=== PATIENT | male | born 1945 | race Caucasian/White ===

== ENCOUNTER 2018-03-28 15:28 | Inpatient (IN) | payer OTHER, MEDICARE ==
--- NOTE | 2018-03-28 16:01 | EDPHY ---
H & P Time Seen by Provider: 03/28/18 16:01 HPI/ROS: HPI CHIEF COMPLAINT: Cough, shortness of breath HISTORY OF PRESENT ILLNESS: This is a 72-year-old male presents emergency room by EMS for cough, shortness of breath. The patient just flew from [place] to [facility] for the holiday. He arrives to the emergency room after he had a near syncopal episode with vomiting generalized weakness and shortness of breath. and daughter at bedside report that he has a hard time with high altitude. The patient presents emergency room by EMS after he got up out of a chair felt lightheaded, and then had a presyncopal episode he did not have full syncope. Denies chest pain. Main complaint lightheadedness, nausea and shortness of breath. Past Medical History: COPD. Past Surgical History: Denies significant surgical history Social History: Lives in [place]. Denies drugs alcohol tobacco. Family History: Noncontributory. ROS REVIEW OF SYSTEMS: 10 Systems were reviewed and negative with the exception of the elements mentioned in the history of present illness. Exam Constitutional elderly, nontoxic triage nursing summary reviewed, vital signs reviewed, awake/alert. Hypoxic 78% on room air. Eyes normal conjunctivae and sclera, EOMI, PERRLA. HENT normal inspection, atraumatic, moist mucus membranes, no epistaxis, neck supple/ no meningismus, no raccoon eyes. Respiratory crackles right lung base. Cardiovascular rate normal, regular rhythm, no murmur, no edema, distal pulses normal. Gastrointestinal soft, non-tender, no rebound, no guarding, normal bowel sounds, no distension, no pulsatile mass. Genitourinary no CVA tenderness. Musculoskeletal no midline vertebral tenderness, full range of motion, no calf swelling, no tenderness of extremities, no meningismus, good pulses, neurovascularly intact. Skin pink, warm, & dry, no rash, skin atraumatic. Neurologic awake, alert and oriented x 3, AAOx3, moves all 4 extremities equally, motor intact, sensory intact, CN II-XII intact, normal cerebellar, normal vision, normal speech. Psychiatric normal mood/affect. Heme/Lymph/Immune no lymphadenopathy. Differential Diagnosis: Includes but is not limited to in a particular order dehydration, infection, pneumonia, altitude illness, PE, ACS Medical Decision Making: Plan for this patient IV establishment IV fluid bolus , supplemental oxygen, x-ray, blood cultures, lactic acid, EKG, troponin, rule out pneumonia rule out altitude illness Re-evaluation: Patient's room air saturation 78% on room air. No distress. Requiring 10 L. Chest x-ray reviewed. EKG interpretation by me on record in [employer] system. Impression time of EKG 1631, sinus rhythm rate of 71, right bundle-branch block present. No signs of acute ischemia no ST elevation. Troponin 0.48. IV fluids held due to elevated BNP. Chest x-ray is concerning for pneumonia Patient has a white white blood cell count [id number]. No baseline WBC. Plan for hospital admission for hypoxia, shortness of breath, possible altitude illness, elevated white blood cell count possible pneumonia. Plan for hospital admission due to hypoxia, elevated troponin, elevated BNP, elevated white blood cell count. Patient pending CT angiogram of the chest rule out PE, pneumonia I spoke with the hospitalist service Dr. Acevedo who agrees to admit. IV Levaquin has been ordered. Blood culture sent. Lactic acid pending. Updated family at bedside they agree with this plan. Admit to step-down unit for close monitoring. CT angiogram of the chest reviewed shows no evidence of PE. Tree-in-bud pathology visualized. Pneumonia. IV Levaquin ordered. Respiratory panel ordered. Source: Patient, EMS Constitutional: Initial Vital Signs Temperature (C) 36.3 C 03/28/18 16:07 Heart Rate 72 03/28/18 16:07 Respiratory Rate 18 03/28/18 16:07 Blood Pressure 104/77 03/28/18 16:07 O2 Sat (%) 93 03/28/18 16:07 O2 Delivery Mode Oxymask O2 (L/minute) 10 Allergies/Adverse Reactions: naproxen [From Aleve] Allergy (Verified 03/29/18 11:08) zolpidem [From Ambien] Allergy (Verified 03/29/18 11:08) Home Medications: Medication Instructions Recorded Levothyroxine [Synthroid 50 mcg 50 mcg PO DAILY06 03/28/18 (*)] Mirtazapine [Mirtazapine] 15 mg PO DAILY 03/28/18 Multivitamins [Multivitamin (*)] 1 tab PO DAILY 03/28/18 Tiotropium Br/Olodaterol HCl 2 puffs IH DAILY 03/28/18 [Stiolto Respimat Inhal [place]] acetaZOLAMIDE [Diamox 250 mg (RX)] 250 mg PO QAM 03/28/18 Medical Decision Making - Data Points Laboratory Results: Laboratory Results 03/28/18 16:25 03/28/18 16:15 Medications Given: Albuterol/Ipratropium (Duoneb) 3 ml IH QID KIARRA Stop: 09/24/18 20:59 Last Admin: 03/29/18 11:54 Dose: 3 ml Doxycycline Hyclate (Doxycycline Hyclate) 100 mg PO BID KIARRA PRN Reason: Protocol Stop: 04/28/18 08:59 Last Admin: 03/29/18 10:20 Dose: 100 mg Heparin Sodium (Porcine) (Heparin Sc Injection) 5,000 unit SC Q8 KIARRA Stop: 09/24/18 21:59 Last Admin: 03/29/18 14:57 Dose: 5,000 unit Levothyroxine Sodium (Synthroid) 50 mcg PO DAILY06 KIARRA Stop: 09/25/18 05:59 Last Admin: 03/29/18 05:49 Dose: 50 mcg Mirtazapine (Remeron) 15 mg PO DAILY KIARRA Stop: 09/25/18 08:59 Last Admin: 03/29/18 10:20 Dose: 15 mg Prednisone (Prednisone) 40 mg PO DAILY KIARRA Stop: 09/25/18 10:59 Last Admin: 03/29/18 11:38 Dose: 40 mg Discontinued Medications Levofloxacin/Dextrose (Levaquin 750 Mg (Premix)) 150 mls @ 100 mls/hr IV EDNOW ONE PRN Reason: Protocol Stop: 03/28/18 18:08 Last Admin: 03/28/18 17:06 Dose: 150 mls Sodium Chloride (Ns) 1,000 mls @ 150 mls/hr IV CONT KIARRA Stop: 09/24/18 18:14 Last Admin: 03/29/18 10:19 Dose: 1,000 mls Sodium Chloride (Ns) 1,000 mls @ 6,000 mls/hr IV ONCE ONE Stop: 03/28/18 18:14 Last Admin: 03/28/18 18:38 Dose: 1,000 mls Piperacillin/Tazobactam/Dextrose (Zosyn 3.375 Gm (Premix)) 50 mls @ 100 mls/hr IV Q6HRS KIARRA PRN Reason: Protocol Stop: 04/28/18 00:00 Last Admin: 03/29/18 05:48 Dose: 50 mls Point of Care Test Results: Chemistry 03/28/18 16:37 POC Troponin I 0.48 ng/mL H ng/mL (0.00-0.08) Departure - Departure Disposition: [facility] Inpatient Acute Clinical Impression: Hypoxia, Dehydration, JOSE (acute kidney injury) Pneumonia Qualifiers: Pneumonia type: due to unspecified organism Laterality: bilateral Lung location : unspecified part of lung Qualified Code(s): J18.9 - Pneumonia, unspecified organism Condition: Fair
[2018-03-28 16:27] LABS: PLATELET COUNT 425 10^3/uL (150-400)
[2018-03-28 16:38] LABS: INR 1.06 (0.83-1.16)
[2018-03-28] MEDS ORDERED: IOPAMIDOL (ISOVUE 370) 100 ML BTL IV ONE (17:08)
[2018-03-28] MEDS ORDERED: NS 1,000 ML IV ONE (18:05)
[2018-03-28] MEDS ORDERED: ACETAMINOPHEN 325 MG TAB PO PRN (18:05)
[2018-03-28] MEDS ORDERED: HYDROCODONE/APAP 5/325 TAB PO PRN (18:05)
[2018-03-28] MEDS: NS 1,000 ML IV SCH (19:41)
[2018-03-28] MEDS: IPRATROPIUM/ALBUTEROL 3 ML DEYVIAL IH SCH (20:21)
--- NOTE | 2018-03-28 22:47 | GHP ---
DATE OF ADMISSION: 03/28/2018 CHIEF COMPLAINT: Hypoxia, cough, and syncopal episode. HISTORY OF PRESENT ILLNESS: Mr. Knapp is a 72-year-old gentleman with a past medical history of [employer]IL[employer]EM[employer] D and tonsillar cancer, status post surgery and radiation treatment approximately 10 years ago, who i s visiting from [place], who presented with shortness of breath and cough. [facility], his blood work was notable for leukocytosis of 27,000. He also had a mildly elevated cr eatinine at 1.5. He needed to be placed on oxygen as he was 72% on room air when he first presented. He was placed on 10 L on Ventimask and saturating into the 90s. CT scan of the chest showed diffus e [id number] opacities suggestive of atypical pneumonia such as viral mycobacterial or fungal. Med iastinal and hilar adenopathy was also noted and felt to be reactive in nature. Due to the significa nt hypoxia, he is being admitted for further monitoring and treatment. PAST MEDICAL HISTORY: COPD, hypothyroidism, tonsillar cancer, status post surgery and radiation roc tment. PAST SURGICAL HISTORY: Tonsillectomy for cancer. MEDICATIONS: Levothyroxine and inhalers which he uses daily but is uncertain as to their name. ALLERGIES: No known drug allergies. FAMILY HISTORY: Mom and dad both . They had dementia and diabetes mellitus, type 2. SOCIAL HISTORY: Patient is currently . He was a tobacco smoker for about 10 years in his 20s , but no smoking since that time. He has a daughter here in [place] that he is visiting currently. Full code status. REVIEW OF SYSTEMS: CONSTITUTIONAL: No complaints of any subjective fevers or chills. ENT: No nasa l congestion noted or sinus pain. CARDIOVASCULAR: No complaints of any chest pains or palpitations. RESPIRATORY: Positive for cough. No hemoptysis. GI: No nausea, vomiting, diarrhea, constipation . : No reports of any difficulty with urination. NEUROLOGIC: No complaints of headaches or foca l weakness. HEMATOLOGIC: No history of any deep vein thrombosis or pulmonary embolism. PSYCHIATRIC : No history of anxiety or depression. ENDOCRINE: No polyuria or heat intolerance. SKIN: No new skin rashes. MUSCULOSKELETAL: No focal joint pains. PHYSICAL EXAM: VITAL SIGNS: Temperature 36.3, blood pressure 104/77, heart rate 72, respirations 18 , saturating 93% on 10 L Ventimask. GENERAL: Patient appears comfortable. He is awake, alert, conv ersant, no acute distress. Nontoxic appearing. HEENT: Extraocular movements are intact. No sclera l icterus noted. NECK: Supple. No thyroid enlargement. CHEST: Notable crackles at the bases bila terally. No significant associated wheezing. Respiratory effort was normal. HEART: Regular. No m urmurs noted. ABDOMEN: Soft, nontender, nondistended. : No Yu catheter in place. EXTREMITIE S: No significant pitting edema. NEUROLOGIC: Cranial nerves 2-12 appear grossly intact 5/5 strengt h in extremities. LABS: White blood cell count 27, hemoglobin 13, platelets 425. Sodium 138, potassium 4.3, chloride 103, bicarb 24, BUN 26, creatinine 1.5, glucose 150. INR 1.0. Troponin 0.48. BNP 4890. Liver func tion tests within normal limits. Lipase 65. Lactic acid within normal limits at 1.3. IMAGING: As detailed above. ASSESSMENT/PLAN: 1. Sepsis: Patient does meet criteria for systemic inflammatory response syndrome based upon leukoc ytosis and hypoxia; source could be secondary to pneumonia. 2. Acute hypoxic respiratory failure: Suspect secondary to underlying pneumonia. Scheduled nebuliz ers and wean oxygen as able. 3. Pneumonia: Patient does report having difficulty with swallowing, and this has been going on for some time. It sounds like he has been working with Speech Therapy in [place]. Considering this, I would not rule out aspiration pneumonia as a potential contributor to his presentation. However, by CT imaging, it could be viral or atypical. I recommend respiratory pathogen panel to evaluate for po tential viral etiologies. Otherwise, cover empirically with Zosyn for now. 4. Acute kidney injury: IV fluids overnight and recheck. No known chronic kidney disease. 5. Elevated troponin: May be secondary to underlying sepsis. Trend overnight. Patient is not expe riencing any chest pain or pressure. 6. Chronic obstructive pulmonary disease: Patient does use inhalers, but is uncertain as to which o tito he uses. We will schedule DuoNebs overnight. 7. Deep vein thrombosis prophylaxis: Heparin. 8. Disposition: I will admit under inpatient status. /[id number]/MODL
[2018-03-28] MEDS: HEPARIN 5,000 UNIT/0.5 ML INJ SC SCH (23:22)
[2018-03-28] MEDS: PIPERACILLIN/TAZO 3.375 GM/DEX 50 ML IV SCH (23:22)
[2018-03-29] MEDS: NS 1,000 ML IV SCH ×2 (02:46→10:19)
[2018-03-29] MEDS: IPRATROPIUM/ALBUTEROL 3 ML DEYVIAL IH SCH ×4 (05:10→19:47)
[2018-03-29] MEDS: PIPERACILLIN/TAZO 3.375 GM/DEX 50 ML IV SCH (05:48)
[2018-03-29] MEDS: LEVOTHYROXINE 50 MCG TAB PO SCH (05:49)
[2018-03-29] MEDS: HEPARIN 5,000 UNIT/0.5 ML INJ SC SCH ×3 (05:49→20:37)
--- NOTE | 2018-03-29 06:37 | PDMN ---
Medical Necessity Medical necessity: Pt meets INPT criteria per MD as of 03/28/18 and [facility] Pneumonia (est. LOS >2 MN for eval/tx of pnemonia with RA sat 72%, sepsis, acute hypoxic respiratory failure, acute kidney injury, elevated troponin, COPD) .
[2018-03-29 06:41] LABS: PLATELET COUNT 276 10^3/uL (150-400)
[2018-03-29] MEDS: DOXYCYCLINE HYCLATE 100 MG CAP/TAB PO SCH ×2 (10:20→20:37)
[2018-03-29] MEDS: MIRTAZAPINE 15 MG TAB PO SCH (10:20)
--- NOTE | 2018-03-29 11:31 | GCON ---
CARPET LAYER HELPER CONSULTATION REASON FOR ADMISSION: Diffuse pneumonia, acute exacerbation of COPD. HISTORY: The patient is an extremely pleasant 72-year-old white male with a past medical history of lung cancer, for which he has undergone radiation chemo, hypothyroidism, chronic obstructive pulmonar y disease, and tonsillar cancer. He is visiting [place] from [place]. Upon arriving, he began havi ng increasing breathlessness. It was associated with a cough that was distinctly nonproductive. He was seen in the emergency room and subsequently admitted with an exacerbation of COPD and a diffuse p neumonia. In discussion with the patient, he states overall he feels somewhat better. He denies any chest pain, pleuritic-type chest pain or angina equivalent. There is no fever or night sweats. Whi le he has no resting shortness of breath, he does admit to significant dyspnea upon exertion. He fee ls somewhat better since admission. REVIEW OF SYSTEMS: Ten-point review of systems is performed and is negative, except for what is list ed in the HPI. PAST MEDICAL HISTORY: Again significant for lung cancer, for which he underwent radiation treatment, tonsillar cancer, hypothyroidism, chronic obstructive pulmonary disease. ALLERGIES: None known to medication. SOCIAL HISTORY: Previous heavy smoker, none for over 40 years. No significant alcohol use. 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 He is , has children living in [place]. He has excellent [employer] support. FAMILY HISTORY: Noncontributory. PHYSICAL EXAM: VITAL SIGNS: Blood pressure is 115/66, pulse 66, respirations 20. Temperature is 36 .4, oxygen saturation 99% on 10 L OxyMask. GENERAL: He is a well-developed, well-nourished elderly white male who is resting comfortably, in no acute distress. HEENT: Eyes are PERRL, EOMI. Throat s hows no erythema or tonsillar hypertrophy. NECK: Supple. There is no cervical adenopathy. HEART: Regular rate and rhythm, without murmurs, rubs, or gallops. LUNGS: Diminished breath sounds, but n o wheeze. ABDOMEN: Soft, nontender. Bowel sounds present in all 4 quadrants. EXTREMITIES: No clu bbing, cyanosis, or edema. LABORATORIES: White count 19, hemoglobin 12, hematocrit 39, platelet count 276. Sodium 140, potassi um 4.1, chloride 115. CO2 is 20, BUN 21, creatinine 0.9. Glucose is 100. CT angiogram of the chest shows diffuse tree-in-bud suggestive of an atypical pneumonia, likely viral. IMPRESSION: 1. Diffuse pneumonia, likely viral etiology. 2. Acute exacerbation of chronic obstructive pulmonary disease. 3. History of dysphagia, currently on honey-thick liquids. 4. History of lung cancer. 5. History of tonsillar cancer. 6. Acute respiratory failure secondary to above. RECOMMENDATIONS: 1. Agree with admission to the hospital. 2. Supplemental oxygen, wean as tolerated. 3. Agree with oral antibiotics consisting of doxycycline. 4. Would discontinue Zosyn. 5. Oral steroids consisting of prednisone with taper over 2 weeks' time. 6. Would discharge the patient home soon on supplemental oxygen. He will likely need supplemental o xygen on his plane ride back to [place]. 7. 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 8. PT and OT. 9. Speech to see. 10. Ambulation. /[id number]/MODL
[2018-03-29] MEDS: predniSONE 20 MG TAB PO SCH (11:38)
--- NOTE | 2018-03-29 15:20 | HOSPPROG ---
Hospitalist Progress Note Assessment/Plan: * Acute respiratory failure -72% RA on admission requiring up to 15L O2 overnight -improving - wean O2 * Non STEMI -troponin peaked - no chest pain -may have been due to stress of hypoxia -check ECHO -consult cardiology - d/w Dr. Ferrera * Atypical Pneumonia with sepsis -PO doxycycline * Acute renal failure -resolved * COPD -continue nebs * Tonsillar cancer s/p surgery/XRT * Dysphagia -swallow eval pending Subjective: Feeling much better Objective: Vital Signs Temp Pulse Resp BP Pulse Ox 36.7 C 77 21 H 129/66 H 94 03/29/18 12:15 03/29/18 12:15 03/29/18 12:15 03/29/18 12:15 03/29/18 12:15 Microbiology 03/28/18 18:23 Respiratory Panel (PCR) - Final Nasal, Sinus - Swab No Organism Detected By Pcr Laboratory Results 03/29/18 05:56 03/29/18 05:56 03/28/18 03/29/18 03/30/18 05:59 05:59 05:59 Intake Total 1514 Output Total 400 Balance 1114 PT 14.0 SEC (12.0-15.0) 03/28/18 15:45 INR 1.06 (0.83-1.16) 03/28/18 15:45 CXR viewed, my personal interpretation is - diffuse bilateral infiltrates case d/w Dr. Javier - CT chest c/w atypical PNA - Physical Exam Constitutional: no apparent distress, appears nourished, not in pain Cardiovascular: regular rate and rhythym, no murmur, rub, or gallop Respiratory: no respiratory distress, no rales or rhonchi, clear to auscultation Gastrointestinal: normoactive bowel sounds, soft, non-tender abdomen, no palpable masses Skin: no rashes or abrasions, no fluctuance, no induration Neurologic: AAOx3, sensation intact bilaterally Psychiatric: interacting appropriately, not anxious, not encephalopathic, thought process linear ICD10 Worksheet Patient Problems: Problems Problem Status Onset Hypoxia Acute Dehydration Acute JOSE (acute kidney injury) Acute Pneumonia Acute
--- NOTE | 2018-03-29 16:03 | ASMTCAGE ---
CAGE Do you feel you ought to Answers: No cut down on your drinking or drug use? Do people annoy you by Answers: No criticizing your drinking or drug use? Do you feel guilty about Answers: No your drinking or drug use? Do you drink or use drugs Answers: No first thing in the morning ([employer])? Additional Comments 2 fingers of scotch per day. Declined resources. Date Signed: 03/29/2018 04:02 PM Electronically Signed By:Denice Ace RN
--- NOTE | 2018-03-29 16:05 | ECHO ---
[email or web address] [address] [address] Main: [phone] Fax: Transthoracic Echocardiogram Name: ALLEN LUCAS MR#: [id number] Study Date: 03/29/2018 Study Time: 12:27 PM Date of : 1945 Age: 72 year(s) Height: 185.4 cm (73 in.) Weight: 80.74 kg (178 lb.) BSA: 2.05 m2 Gender: Male Examination: Echo Indication: positive troponin Image Quality: Adequate Contrast: Requested by: Christine Duffy BP: 129 mmHg/66 mmHg Heart Rate: Rhythm: Indication: positive troponin Procedure Staff Certified Adapted Physical Educator: Kandy Sheehan RDCS Reading Physician: Bert Ferrera MD Requesting Provider: Conclusions: Normal size left ventricle. Mild concentric LV hypertrophy. Normal global systolic LV function. EF is 58 %. No regional wall motion abnormality. Mildly dilated right ventricle. The left atrium is mildly dilated. The right atrium is mildly to moderately dilated. Mild to moderate mitral regurgitation. The aortic valve is tri-leaflet. Aortic sclerosis is present. Mild aortic valve regurgitation is present. Mild tricuspid regurgitation is present. The pulmonary artery pressure is mildly increased. Right ventricular systolic pressure measures 41mmHg. Possible left pleural effusion. Measurements: Chambers Valvular Assessment AV/MV Valvular Assessment TV/PV Normal Normal Normal Name Value Range Name Value Range Name Value Range Ao Guillermina (2D): 3.4 cm (1.4 cm-2.6 AV Vmax: 2.50 m/s (1 m/s-1.7 TR Vmax: 3.00 mm/s ( - ) cm) m/s) TR PGmax: 36 mmHg ( - ) IVSd (2D): 1.2 cm (0.6 cm-1.1 AV maxP mmHg ( - ) syst. PAP: 41 mmHg ( - ) cm) AV meanP mmHg ( - ) PV Vmax: 0.87 m/s (0.6 m/s-0.9 LVDd (2D): 4.2 cm (4.2 cm-5.9 MY (VTI): 2.0 cm ( - ) m/s) cm) MV E Vmax: 0.69 m/s ( - ) PV PGmax: 3 mmHg ( - ) LVDs (2D): 2.6 cm (2.1 cm-4 MV A Vmax: 0.60 m/s ( - ) cm) MV E/A: 1.15 ( - ) MV PHT: 0.073 s ( - ) Patient: ALLEN LUCAS Study Date: 03/29/2018 Page 1 of 2 12:27 PM LVPWd (2D): 1.1 cm (0.6 cm-1 MVA (PHT): 3.0 s ( - ) cm) LVOTd 2.3 cm 2.3 cm mm LVEF (BP): 58 % (>=55 %) RVDd(2D): 4.1 cm (1.9 cm-3.8 cmmm) Continued Measurements: Chambers Valvular Assessment AV/MV Valvular Assessment TV/PV Name Value Name Value Name Value LADs: 3.8 cm MV DecTime: 236 m/s CVP (est.): 5 mmHg LADs Lon.5 cm MV E' Septal: 0.08 m/s LA Area: 27.3 cm2 MV E/E' Septal: 8.20 LA Volume: 80 ml MV E/E' Lateral: 5.80 LA Volume Index: 39.0 ml/m2 RA Area: 23.7 cm2 Additional Vessels Name Value Ao Ascendin.9 cm Inferior Vena Cava: 2.6 cm Findings: Left Ventricle: Normal size left ventricle. Mild concentric LV hypertrophy. Normal global systolic LV function. EF is 58 %. No regional wall motion abnormality. Unable to assess diastolic dysfunction. Right Ventricle: Mildly dilated right ventricle. Normal RV function. Left Atrium: The left atrium is mildly dilated. Right Atrium: The right atrium is mildly to moderately dilated. Mitral Valve: The mitral valve is normal in appearance and function. Mild to moderate mitral regurgitation. No mitral stenosis is present. Aortic Valve: The aortic valve is tri-leaflet. Aortic sclerosis is present. Mild aortic valve regurgitation is present. Tricuspid Valve: The tricuspid valve is normal in appearance and function. Mild tricuspid regurgitation is present. The pulmonary artery pressure is mildly increased. Right ventricular systolic pressure measures 41mmHg. Pulmonic Valve: The pulmonic valve is normal in appearance and function. Trivial pulmonic valve regurgitation. Aorta: The aorta is normal. Normal size aortic root measuring 3.4 cm. Normal size ascending aorta measuring 3.9 cm. IVC: The IVC is dilated. Pericardium: No pericardial effusion. No pleural effusion. (No Signature Object) Patient: ALLEN LUCAS Study Date: 03/29/2018 Page 2 of 2 12:27 PM [id number]
--- NOTE | 2018-03-29 16:05 | ASMTCMCOM ---
CM Note CM Note Notes: 03/29/2018 Case Management Note Discussed pt during rounds this morning. Pt admitted for pneumonia. Pt is visiting From [place] to see his daughter and grandchildren. Therapy evals are pending. Met w/pt. CAGE completed. Case Management d/c poc: to be determined pending eval recommendations. Case Management to follow Date Signed: 03/29/2018 04:05 PM Electronically Signed By:Denice Ace RN
--- NOTE | 2018-03-29 16:44 | PDCARCONS ---
Cardiology Consult Reason for Consult: Elevated troponin. Chief Complaint: Initial chief complaint of dyspnea, cough and dizziness. Requesting Physician: Dr. Christine Duffy. History of Present Illness: This is a pleasant 72-year-old gentleman who is in the local area visiting from [place]. He has no known cardiovascular disease. His cardiac risk factor profile is benign with the exception of his age and gender. 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 Was admitted to the hospital on March 28 after he presented with complaints of dyspnea, dizziness and was found to be hypoxic. He had an abnormal chest x-ray. He has been diagnosed with what is likely a viral pneumonia and an exacerbation of his underlying COPD. He is currently being treated with broad-spectrum antibiotics, steroids and supplemental oxygen and is improving. As part of his workup he has had cardiac enzymes drawn which were noted to be slightly elevated just above 1 mg/dL. He has not experienced any chest pain or chest pressure. He has no cardiovascular history of coronary artery disease he has. His ECG did not suggest any acute injury. History Information - Allergies/Home Medication List Allergies/Adverse Reactions: naproxen [From Aleve] Allergy (Verified 03/29/18 11:08) zolpidem [From Ambien] Allergy (Verified 03/29/18 11:08) Home Medications: Levothyroxine [Synthroid 50 mcg (*)] 50 mcg PO DAILY06 03/28/18 [Last Taken 07:00] Mirtazapine [Mirtazapine] 15 mg PO DAILY 03/28/18 [Last Taken 03/28/18 08:00] Multivitamins [Multivitamin (*)] 1 tab PO DAILY 03/28/18 [Last Taken 03/28/18 08 :00] Tiotropium Br/Olodaterol HCl [Stiolto Respimat Inhal Hulbert] 2 puffs IH DAILY [Last Taken 03/28/18 08:00] acetaZOLAMIDE [Diamox 250 mg (RX)] 250 mg PO QAM 03/28/18 [Last Taken 03/28/18 08:00] I have personally reviewed and updated: family history, medical history, social history, surgical history Past Medical History: Tonsillar cancer status post surgical resection, radiation and chemotherapy, early COPD, 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 - Surgical History Additional surgical history: Surgical resection of lymph nodes as part of his treatment for tonsillar cancer. - Family History Negative for: vascular disease, CAD - Social History Smoking Status: Former smoker Alcohol Use: None Drug Use: None Additional social history: He is from [place]. He is a retired real estate counselor. He did have an unexplained 35 lb weight loss this last summer. He is and has a daughter that lives in the local area here in 1 back in [place]. He and his family are visiting from [place]. Physical Exam Physical Exam: Temp Pulse Resp BP Pulse Ox 36.6 C 74 23 H 136/77 H 93 03/29/18 15:52 03/29/18 15:52 03/29/18 15:52 03/29/18 15:52 03/29/18 15:52 O2 (L/minute) 2 FIO2 (%) 40 Constitutional: no apparent distress, appears nourished, not in pain Eyes: PERRL, anicteric sclera, EOMI Ears, Nose, Mouth, Throat: moist mucous membranes, hearing normal, ears appear normal, no oral mucosal ulcers, other (Residual changes related to neck surgery) Cardiovascular: regular rate and rhythym, systolic murmur (1/6 systolic ejection murmur left sternal border), No edema Peripheral Pulses: 2+: carotid (R), carotid (L) Respiratory: no respiratory distress, reduced air movement (Diffusely) Gastrointestinal: normoactive bowel sounds, soft, non-tender abdomen, no palpable masses Genitourinary: no bladder fullness, no bladder tenderness Skin: warm, normal color, no rashes or abrasions, no fluctuance, no induration, No mottled Musculoskeletal: full muscle strength, no muscle tenderness, normal joint ROM, no joint effusions Psychiatric: interacting appropriately, not anxious, not encephalopathic, thought process linear Lymph, Heme, Immunologic: no cervical LAD, no supraclavicular LAD Lab and Imaging 03/29/18 05:56 03/29/18 05:56 WBC 19.10 10^3/uL (3.80-9.50) H 03/29/18 05:56 RBC 4.47 10^6/uL (4.40-6.38) 03/29/18 05:56 Hgb 12.3 g/dL (13.7-17.5) L 03/29/18 05:56 Hct 39.6 % (40.0-51.0) L 03/29/18 05:56 MCV 88.6 fL (81.5-99.8) 03/29/18 05:56 MCH 27.5 pg (27.9-34.1) L 03/29/18 05:56 MCHC 31.1 g/dL (32.4-36.7) L 03/29/18 05:56 RDW 14.6 % (11.5-15.2) 03/29/18 05:56 Plt Count 276 10^3/uL (150-400) 03/29/18 05:56 MPV 9.4 fL (8.7-11.7) 03/29/18 05:56 Neut % (Auto) 86.6 % (39.3-74.2) H 03/29/18 05:56 Lymph % (Auto) 7.4 % (15.0-45.0) L 03/29/18 05:56 [place] % (Auto) 4.8 % (4.5-13.0) 03/29/18 05:56 Eos % (Auto) 0.2 % (0.6-7.6) L 03/29/18 05:56 Baso % (Auto) 0.2 % (0.3-1.7) L 03/29/18 05:56 Nucleat RBC Rel Count 0.0 % (0.0-0.2) 03/29/18 05:56 Absolute Neuts (auto) 16.54 10^3/uL (1.70-6.50) H 03/29/18 05:56 Absolute Lymphs (auto) 1.41 10^3/uL (1.00-3.00) 03/29/18 05:56 Absolute Monos (auto) 0.92 10^3/uL (0.30-0.80) H 03/29/18 05:56 Absolute Eos (auto) 0.04 10^3/uL (0.03-0.40) 03/29/18 05:56 Absolute Basos (auto) 0.04 10^3/uL (0.02-0.10) 03/29/18 05:56 Absolute Nucleated RBC 0.00 10^3/uL (0-0.01) 03/29/18 05:56 Immature Gran % 0.8 % (0.0-1.1) 03/29/18 05:56 Immature Gran # 0.15 10^3/uL (0.00-0.10) H 03/29/18 05:56 RBC/WBC/PLT Morphology TNP 03/28/18 16:25 Platelet Estimate TNP 03/28/18 16:25 PT 14.0 SEC (12.0-15.0) 03/28/18 15:45 INR 1.06 (0.83-1.16) 03/28/18 15:45 APTT 31.9 SEC (23.0-38.0) 03/28/18 15:45 VBG Lactic Acid 1.3 mmol/L (0.7-2.1) 03/28/18 17:04 Sodium 140 mEq/L (135-145) 03/29/18 05:56 Potassium 4.1 mEq/L (3.5-5.2) 03/29/18 05:56 Chloride 115 mEq/L (97-110) H 03/29/18 05:56 Carbon Dioxide 20 mEq/l (22-31) L 03/29/18 05:56 Anion Gap 5 mEq/L (6-14) L 03/29/18 05:56 BUN 21 mg/dL (7-23) 03/29/18 05:56 Creatinine 0.9 mg/dL (0.7-1.3) 03/29/18 05:56 Estimated GFR > 60 03/29/18 05:56 Glucose 100 mg/dL (70-100) 03/29/18 05:56 Calcium 8.5 mg/dL (8.5-10.4) 03/29/18 05:56 Magnesium 2.0 mg/dL (1.6-2.3) 03/28/18 16:15 Total Bilirubin 0.5 mg/dL (0.1-1.4) 03/28/18 16:15 Conjugated Bilirubin 0.2 mg/dL (0.0-0.5) 03/28/18 16:15 Unconjugated Bilirubin 0.3 mg/dL (0.0-1.1) 03/28/18 16:15 AST 22 IU/L (17-59) 03/28/18 16:15 ALT 20 IU/L (21-72) L 03/28/18 16:15 Alkaline Phosphatase 82 IU/L (38-126) 03/28/18 16:15 POC Troponin I 0.48 ng/mL (0.00-0.08) H 03/28/18 16:37 Troponin I 1.040 ng/mL (0.000-0.034) H 03/29/18 14:00 NT-Pro-B Natriuret Pep 4890 pg/mL (0-125) H 03/28/18 16:15 Total Protein 7.1 g/dL (6.3-8.2) 03/28/18 16:15 Albumin 3.7 g/dL (3.5-5.0) 03/28/18 16:15 Lipase 65 IU/L (23-300) 03/28/18 16:15 Urine Color YELLOW 03/28/18 20:55 Urine Appearance CLEAR 03/28/18 20:55 Urine pH 5.0 (5.0-7.5) 03/28/18 20:55 Ur Specific [place] > 1.060 (1.002-1.030) H 03/28/18 20:55 Urine Protein NEGATIVE (NEGATIVE) 03/28/18 20:55 Urine Ketones NEGATIVE (NEGATIVE) 03/28/18 20:55 Urine Blood NEGATIVE (NEGATIVE) 03/28/18 20:55 Urine Nitrate NEGATIVE (NEGATIVE) 03/28/18 20:55 Urine Bilirubin NEGATIVE (NEGATIVE) 03/28/18 20:55 Urine Urobilinogen NEGATIVE EU (0.2-1.0) 03/28/18 20:55 Ur Leukocyte Esterase NEGATIVE (NEGATIVE) 03/28/18 20:55 Urine Glucose NEGATIVE (NEGATIVE) 03/28/18 20:55 Laboratory Tests 03/28/18 03/28/18 03/29/18 16:15 16:37 05:56 POC Troponin I 0.48 H Troponin I 1.160 H NT-Pro-B Natriuret Pep 4890 H 03/29/18 14:00 POC Troponin I Troponin I 1.040 H NT-Pro-B Natriuret Pep Visualized and Interpreted Chest x-ray results: Yes Visualized and Interpreted imaging results: No Visualized and Interpreted EKG results: Yes EKG additional interpertation: Normal sinus rhythm. Right bundle branch block. No ischemic changes. Telemetry: Normal sinus rhythm. Echocardiogram: There is a full and separately dictated report on the chart. There are no wall motion abnormalities noted. A/P Assessment: This 72-year-old male with no known cardiovascular disease. He is currently admitted with a viral pneumonia associated with hypoxic respiratory failure. As part of his workup he had cardiac enzymes drawn. These were noted to be slightly elevated just above 1 mg/dL. His ECG indicates a right bundle branch block without ischemic ST or T changes. His echocardiogram was remarkable for slight right ventricular enlargement and no indication of wall motion abnormalities. His chest CTA was negative for PE and confirmatory for atypical pneumonia. His overall findings are most consistent with a slight myocardial injury related to his current clinical presentation with atypical pneumonia. This could be a direct toxic effect of interleukins or possibly a a supply demand mismatch in the setting of underlying CAD. There is no indication of an unstable coronary syndrome. Plan: At this point, he does not require any further cardiovascular testing and is sufficiently low risk that he can be discharged from the hospital without further cardiac testing. I did recommend that low-dose aspirin and beta- noni therapy be started. I also recommended that he have an expedited follow -up with a livestock feeder upon his return to [place]. As an outpatient I think he should undergo further cardiovascular testing in the form of a stress myocardial perfusion imaging study. Depending on those results beta-noni therapy and low-dose aspirin can be discontinued or he may require additional cardiovascular testing. Review of Systems Review of Systems: - Review of Systems Constitutional: see HPI Respiratory: see HPI Cardiac: see HPI Gastrointestinal/Abdominal: see HPI Genitourinary: no symptoms Musculoskelatal: no symptoms Skin: no symptoms Neurological: no symptoms Hematologic/Lymphatic: no symptoms reported Immunologic/allergic: no symptoms reported All Other Systems: Reviewed and Negative
[2018-03-30] MEDS: IPRATROPIUM/ALBUTEROL 3 ML DEYVIAL IH SCH ×3 (05:07→15:58)
[2018-03-30 06:13] LABS: PLATELET COUNT 290 10^3/uL (150-400)
[2018-03-30] MEDS: HEPARIN 5,000 UNIT/0.5 ML INJ SC SCH ×2 (06:18→16:19)
[2018-03-30] MEDS: LEVOTHYROXINE 50 MCG TAB PO SCH (06:18)
[2018-03-30] MEDS: MIRTAZAPINE 15 MG TAB PO SCH (07:56)
[2018-03-30] MEDS: DOXYCYCLINE HYCLATE 100 MG CAP/TAB PO SCH (07:56)
[2018-03-30] MEDS: predniSONE 20 MG TAB PO SCH (07:56)
[2018-03-30] MEDS ORDERED: ASPIRIN EC 81 MG TAB PO SCH (09:00)
[2018-03-30] MEDS ORDERED: METOPROLOL TARTRATE 25 MG TAB PO SCH (09:00)
--- NOTE | 2018-03-30 09:28 | SOAPPROG ---
SOAP Progress Note Assessment/Plan: Assessment/plan: * Diffuse pneumonia-likely viral -agree with current antibiotic coverage * Acute respiratory failure-improved -wean FiO2 as tolerated * Elevated troponin-seen by Cardiology. No further workup scheduled. * Chronic obstructive pulmonary disease acute exacerbation -continue steroids and nebs * History of lung cancer * History of tonsillar cancer * VTE prophylaxis * Stress ulcer prophylaxis * PT and OT * Ambulation * Disposition-home soon. Would wean prednisone from 40 mg over 2 weeks time Subjective: Sitting up in bed. Resting comfortably. Breathing easier. Cough has improved. Objective: Vital Signs Temp Pulse Resp BP Pulse Ox 36.9 C 74 16 160/74 H 93 03/30/18 00:00 03/30/18 07:47 03/30/18 07:47 03/30/18 07:47 03/30/18 07:47 Laboratory Results 03/30/18 05:55 03/30/18 05:55 03/29/18 03/30/18 03/31/18 05:59 05:59 05:59 Intake Total 1514 1432 Output Total 400 Balance 1114 1432 PT 14.0 SEC (12.0-15.0) 03/28/18 15:45 INR 1.06 (0.83-1.16) 03/28/18 15:45 - Time Spent With Patient Time Spent With Patient: 25 min of time spent with patient, over 1/2 involved with coordination of care or counseling. Case discussed with nursing Physical Exam - Physical Exam General Appearance: WD/WN, alert, no apparent distress EENT: PERRL/EOMI Neck: non-tender, supple Respiratory: prolonged expiration, No respiratory distress, No wheezing Cardiac/Chest: normal peripheral pulses, regular rate, rhythm Peripheral Pulses: 2+: carotid (R), carotid (L), femoral (R), femoral (L), dorsalis-pedis (R), dorsalis-pedis (L) Abdomen: normal bowel sounds, non-tender, soft Male Genitalia: deferred Rectal: deferred Skin: normal color, warm/dry Extremities: normal range of motion, non-tender, normal inspection, normal capillary refill Neuro/Psych: no motor/sensory deficits, alert, normal mood/affect, oriented x 3 ICD10 Worksheet Patient Problems: Problems Problem Status Onset JOSE (acute kidney injury) Acute Dehydration Acute Hypoxia Acute Pneumonia Acute
[2018-03-30 09:59] VITALS: BP 167/74
--- NOTE | 2018-03-30 10:19 | PDHOMEO2F ---
Home Oxygen Face to Face Home Orders: I certify that a physician or a nurse practitioner or physician's pastry assistant has had a [id number] encounter with this patient on the date of this order due to the diagnosis listed, which relates to the primary reason the patient requires home oxygen. Alternative treatments have been tried, or considered, and deemed ineffective. It is anticipated that supplemental oxygen will result in improvement with treatment. Home oxygen qualifying diagnosis: Chronic aspiration with scarring SpO2 on room air (%): 80 Frequency of home oxygen needed: continuous Home oxygen liters per minute: 3 Home oxygen delivery device: nasal cannula Concentrator: Yes E-tanks for mobility and back up: Yes If ordering portable O2, is the patient mobile in the home?: Yes I certify that, based on these findings, the home oxygen is medically necessary for this patient for the following length of time. Length of time home oxygen needed: 99 years
--- NOTE | 2018-03-30 11:33 | ASMTLACE ---
TOM Acuity / Level of Answers: Yes Care: Did the patient have an inpatient admission? Comorbidities - select Answers: Any tumor (including all that apply lymphoma or leukemia) Chronic pulmonary disease Score: 7 Date Signed: 03/30/2018 11:32 AM Electronically Signed By:Denice Ace RN
--- NOTE | 2018-03-30 12:02 | ASDISCHSUM ---
Discharge Information Plan Status:Home with No Needs Medically Cleared to Leave:03/29/2018 Discharge Date:03/29/2018 CM D/C Disposition:Home, Routine, Self-Care ADT D/C Disposition:Home, Routine, Self-Care Projected Discharge Date:03/29/2018 Transportation at D/C:Family Discharge Delay Reason: Follow-Up Date:03/29/2018 Discharge Slot: Final Diagnosis: Placement Information Patient Contact Information Contact Name:GOPI Relationship:Daughter Address: Work Phone: City: [facility] Phone: State/Zip Code: Email: Financial Information Financial Class:Medicare Primary Plan Desc:MEDICARE INPATIENT Primary Plan Number:[id number] Secondary Plan Desc:[employer]/MDR SUPPLEMENT Secondary Plan Number:[id number] Assessment Information LACE LACE Acuity / Level of Answers: Yes Care: Did the patient have an inpatient admission? Comorbidities - select Answers: Any tumor (including all that apply lymphoma or leukemia) Chronic pulmonary disease Score: 7 Date Signed: 03/30/2018 11:32 AM Electronically Signed By:Denice Ace RN [facility] CM Progress Note CM Note CM Note Notes: 03/29/2018 Case Management Note Discussed pt during rounds this morning. Pt admitted for pneumonia. Pt is visiting From [place] to see his daughter and grandchildren. Therapy evals are pending. Met w/pt. CAGE completed. Case Management d/c poc: to be determined pending eval recommendations. Case Management to follow Date Signed: 03/29/2018 04:05 PM Electronically Signed By:Denice Ace RN CAGE Questionnaire CAGE Do you feel you ought to Answers: No cut down on your drinking or drug use? Do people annoy you by Answers: No criticizing your drinking or drug use? Do you feel guilty about Answers: No your drinking or drug use? Do you drink or use drugs Answers: No first thing in the morning (Eye Reversal Print Inspector)? Additional Comments 2 fingers of scotch per day. Declined resources. Date Signed: 03/29/2018 04:02 PM Electronically Signed By:Denice Ace RN Case Management Discharge Plan Note Case Management Discharge Discharge Order Complete? Answers: Yes Patient to Obtain Answers: via Family Medications Transportation Arranged Answers: Family/Friends Discharge Comments Notes: 03/30/2018 Case Management Note Pt to discharge to daughter's house in [place]. Provided airline letter. No further case management d/c needs identified. Date Signed: 03/30/2018 12:01 PM Electronically Signed By:Denice Ace RN Intervention Information
--- NOTE | 2018-03-30 18:48 | GDS ---
DISCHARGE DIAGNOSES: 1. Acute on chronic respiratory failure. 2. Dlk-YM-lptnsdekc myocardial infarction. 3. Atypical pneumonia with sepsis. 4. Acute renal failure. 5. Chronic aspiration with suspected interstitial lung disease. 6. Tonsillar cancer status post surgery and radiation. HISTORY: The patient is a 72-year-old male, who lives in [place], flew here for the holidays to stay with his daughter and grandchildren. Upon arriving to [place], he did poorly, developing worsening shortness of breath. Presented 72% on room air. Upon presentation he was admitted to ICU requiring 15 L of oxygen. Imaging revealed an atypical pneumonia. He met sepsis criteria. Given the clear a typical nature of the pneumonia, Pulmonary Medicine thought he would be fine with oral doxycycline al one. He bumped his troponin to greater than 1 but never had any cardiac symptoms. His echo looked o deepa with a normal ejection fraction. This was likely due to the stress of his hypoxemia. Cardiology saw him in consultation and is recommending stress testing upon return to [place]. Further history reveals that the patient has poor saturations in [place], only 85% on room air at [facility] but refuses to wear oxygen. I do think there was an acute component of his respiratory failure due to altitude and pneumonia. He was counseled at length regarding his need for continuous 24/7 ox ygen likely indefinitely. We made arrangements for portable oxygen to accompany [place] to [place]. He is known to chronically aspirate and has borderline compliance with his diet modifi cations, which include nectar thick liquids. DISCHARGE MEDICATIONS: Please see computerized record for full detailed list. New medications: 1. Aspirin 81 mg p.o. daily. 2. Doxycycline 100 mg p.o. b.i.d. for 7 more days. 3. Metoprolol 25 mg p.o. b.i.d. 4. Prednisone 40 mg p.o. daily for 5 more days. ADDITIONAL DISCHARGE INSTRUCTIONS: 1. Recommend oxygen to maintain saturations greater than 90%. Recommend arranging oxygen in order t o fly back to [place]. 2. Outpatient cardiology followup upon returning to [place] and recommend outpatient cardiac stress testing. TIME SPENT: Greater than 30 minutes' time was spent arranging this discharge. Patient was seen and examined by me on the day of discharge. /[id number]/MODL
--- NOTE | 2018-03-31 06:28 | CPEKG ---
Test Reason : OPEN Blood Pressure : / mmHG Vent. Rate : 071 BPM Atrial Rate : 072 BPM P-R Int : 185 ms QRS Dur : 123 ms QT Int : 512 ms P-R-T Axes : 042 033 003 degrees QTc Int : 557 ms Sinus rhythm Right bundle branch block Confirmed by Audi Emerson ([id number]) on 03/31/2018 6:27:31 AM Referred By: Confirmed By:Audi Emerson
== END 2018-03-30 16:00 | disposition home or self-care (01) | DRG 871 ==
LOC: F2N 19:00
PROVIDERS: ADMIT Internal Medicine; ATTEND Internal Medicine
DX: A41.9 Sepsis, unspecified organism (principal); J18.9 Pneumonia, unspecified organism; J44.1 Chronic obstructive pulmonary disease with (acute) exacerbation; J44.0 Chronic obstructive pulmonary disease with (acute) lower respiratory infection; I21.A1 Myocardial infarction type 2; N17.9 Acute kidney failure, unspecified; J44.9 Chronic obstructive pulmonary disease, unspecified; J96.21 Acute and chronic respiratory failure with hypoxia; E03.9 Hypothyroidism, unspecified; Z85.818 Personal history of malignant neoplasm of other sites of lip, oral cavity, and pharynx; Z85.118 Personal history of other malignant neoplasm of bronchus and lung; Z87.891 Personal history of nicotine dependence; Z92.3 Personal history of irradiation
CPT/HCPCS: 84484-ER; 92610-GN; 96374; 97165-GO; G8987-GO-CI; G8988-GO-CI; G8989-GO-CI; G8996-GN-CK; G8997-GN-CK; J1644; J1956; J2543; J7512; Q9967